=== PATIENT | female | born 1995 | race Caucasian/White ===

== ENCOUNTER → 2019-12-13 | Outpatient (REF) | payer BC | LOC: M SFHCWAGY 13:07 | PROVIDERS: ATTEND Advanced Practice Midwife | DX: Z12.4 Encounter for screening for malignant neoplasm of cervix (principal) ==

== ENCOUNTER → 2020-07-03 | Outpatient (REF) | payer BC ==
[2020-07-03 12:46] LABS: HEMOGLOBIN 13.6 g/dl (12.0-15.5); MEAN CORPUSCULAR HGB CONC 32.4 g/dl (32.0-36.5); MEAN CORPUSCULAR VOLUME 92.7 fl (80.0-96.0); PLATELET COUNT, AUTOMATED 270 10^3/uL (150-450); RED BLOOD COUNT 4.53 10^6/uL (4.00-5.40); WHITE BLOOD COUNT 9.9 10^3/uL (4.0-10.0)
[2020-07-03 14:03] LABS: HEPATITIS C VIRUS ABY INDEX 0.1 INDEX (<0.8); HIV 1&2 SCREEN CENTAUR NEGATIVE (NEGATIVE)
== END ==
LOC: M PLALAB 10:09
PROVIDERS: ATTEND Advanced Practice Midwife
DX: O09.291 Supervision of pregnancy with other poor reproductive or obstetric history, first trimester (principal)

== ENCOUNTER → 2020-08-20 | Outpatient (CLI) | payer BC ==
--- NOTE | 2020-08-20 15:58 | REP ---
INDICATION: R10.11 RUQ PAIN,19 WEEK PREG COMPARISON: None. TECHNIQUE: Real time rudolph scale ultrasound examination using curved array transducer. FINDINGS: Liver is normal in contour, size, and echogenicity without focal hepatic lesions identified. Pancreas is incompletely evaluated due to interposed bowel gas. The gallbladder is normal and without gallstones, wall thickening, or pericholecystic fluid. No biliary ductal dilatation is appreciated and the common bile duct measures 3.8 mm diameter. Right kidney is normal in reniform shape without hydronephrosis and measures 11.4 x 6.0 x 5.0 cm. No ascites in the visualized right upper quadrant. IMPRESSION: Normal limited right upper quadrant ultrasound <Electronically signed by Shawn Kaur > 08/20/20 [id number]
== END ==
LOC: M WHC 13:38
PROVIDERS: ATTEND Advanced Practice Midwife
DX: R10.11 Right upper quadrant pain (principal)

== ENCOUNTER → 2020-08-20 | Outpatient (REF) | payer BC ==
[2020-08-20 15:25] LABS: HEMOGLOBIN 13.2 g/dl (12.0-15.5); MEAN CORPUSCULAR HEMOGLOBIN 31.2 pg (27.0-33.0); MEAN CORPUSCULAR VOLUME 94.6 fl (80.0-96.0); PLATELET COUNT, AUTOMATED 243 10^3/uL (150-450); RED BLOOD COUNT 4.23 10^6/uL (4.00-5.40)
[2020-08-20 15:59] LABS: ALBUMIN 3.6 GM/DL (3.2-5.2); BILIRUBIN,DIRECT 0.1 MG/DL (0.0-0.2); BILIRUBIN,TOTAL 0.4 MG/DL (0.2-1.0); TOTAL PROTEIN 7.1 GM/DL (6.4-8.2)
== END ==
LOC: M PLALAB 13:20
PROVIDERS: ATTEND Advanced Practice Midwife
DX: R10.11 Right upper quadrant pain (principal)

== ENCOUNTER → 2020-09-04 | Outpatient (CLI) | payer BC ==
--- NOTE | 2020-09-04 16:03 | REP ---
INDICATION: ANATOMY. COMPARISON: None. TECHNIQUE: Transabdominal obstetric sonography FINDINGS: Scanning through the gravid uterus demonstrates a viable single intrauterine gestation in transverse, head to the maternal left lie. motion is observed and heart rate is recorded at 149 beats per minute. A posterior placenta is seen, grade 0, without evidence of placenta previa. Amniotic fluid is subjectively normal. Closed cervical length is measured at 3.7 cm transabdominally. No extrauterine abnormality is observed. No anomaly is seen. The following anatomic structures are identified and felt to be sonographically unremarkable: cranium, choroid plexus, cavum, cerebellum and posterior fossa, facial profile, lungs, four-chamber heart with left and right ventricular outflow tract views, diaphragm, left-sided stomach, abdominal wall cord insertion, three-vessel umbilical cord, kidneys and bladder, spine, and upper and lower extremities. nose and lips are less than optimally seen today due to position. Biometry chart: BPD 4.6 cm, 20 weeks 0 days Head circumference 17.3 cm, 19 weeks 6 days Abdominal circumference 14.6 cm, 19 weeks 6 days Femur length 3.3 cm, 20 weeks 1 day Humeral length 3.0 cm, 19 weeks 6 days HC AC ratio normal 1.19 Cephalic index normal 0.73 Estimated weight 326 g, 0 lb 11 oz, less than 3rd percentile for 21 weeks 2 days Amniotic fluid volume subjectively normal IMPRESSION: Viable single intrauterine gestation at 20 weeks 0 days by today's composite sonographic criteria. DEISY by today's sonography January 22, 2021 nose and lips less than optimally seen today due to position.. No complication identified. <Electronically signed by Mack Ricks > 09/04/20 1600
== END ==
LOC: M WHC 11:21
PROVIDERS: ATTEND Advanced Practice Midwife
DX: Z34.92 Encounter for supervision of normal pregnancy, unspecified, second trimester (principal); Z3A.20 20 weeks gestation of pregnancy

== ENCOUNTER → 2020-10-02 | Outpatient (REF) | payer BC | LOC: M PLALAB 09:30 | PROVIDERS: ATTEND Obstetrics & Gynecology | DX: Z3A.25 25 weeks gestation of pregnancy (principal) ==

== ENCOUNTER → 2020-10-09 | Outpatient (CLI) | payer BC | LOC: M WHC 12:18 | PROVIDERS: ATTEND Obstetrics & Gynecology | DX: Z3A.25 25 weeks gestation of pregnancy (principal) ==

== ENCOUNTER → 2020-10-23 | Outpatient (REF) | payer BC ==
[2020-10-23 14:40] LABS: HEMATOCRIT 37.4 % (36.0-47.0); HEMOGLOBIN 11.9 g/dl (12.0-15.5); MEAN CORPUSCULAR HEMOGLOBIN 31.3 pg (27.0-33.0); MEAN CORPUSCULAR HGB CONC 31.8 g/dl (32.0-36.5); MEAN CORPUSCULAR VOLUME 98.4 fl (80.0-96.0); PLATELET COUNT, AUTOMATED 215 10^3/uL (150-450); WHITE BLOOD COUNT 9.9 10^3/uL (4.0-10.0)
== END ==
LOC: M PLALAB 10:05
PROVIDERS: ATTEND Obstetrics & Gynecology
DX: Z3A.25 25 weeks gestation of pregnancy (principal)
CPT/HCPCS: 36415; 82950; 85027; 86850; 86900; 86901; J2790

== ENCOUNTER → 2020-12-18 | Outpatient (REF) | payer BC | LOC: M SFHCWAGY 16:53 | PROVIDERS: ATTEND Advanced Practice Midwife | DX: Z34.83 Encounter for supervision of other normal pregnancy, third trimester (principal); Z36.85 Encounter for antenatal screening for Streptococcus B ==

== ENCOUNTER → 2021-01-08 | Outpatient (CLI) | payer BC | LOC: M LABSMTC 10:36 | PROVIDERS: ATTEND Specialist | DX: Z20.828 Contact with and (suspected) exposure to other viral communicable diseases (principal); Z11.59 Encounter for screening for other viral diseases ==

== ENCOUNTER → 2021-01-13 | Outpatient (CLI) | payer BC ==
[~2021-01-13] MED LIST: PRENTAB9 PO
== END ==
LOC: M LABSMTC 09:42
PROVIDERS: ATTEND Specialist
DX: Z20.828 Contact with and (suspected) exposure to other viral communicable diseases (principal)

== ENCOUNTER → 2022-07-29 | Outpatient (REF) | payer BC ==
[2022-07-29 22:08] LABS: GC DNA AMPLIFICATION NEGATIVE (NEGATIVE)
== END ==
LOC: M PLALAB 16:19
PROVIDERS: ATTEND Advanced Practice Midwife
DX: Z34.81 Encounter for supervision of other normal pregnancy, first trimester (principal)

== ENCOUNTER → 2022-07-29 | Outpatient (CLI) | payer BC ==
[2022-07-29 18:29] LABS: HEMATOCRIT 38.4 % (36.0-47.0); HEMOGLOBIN 12.4 g/dl (12.0-15.5); MEAN CORPUSCULAR HEMOGLOBIN 30.8 pg (27.0-33.0); MEAN CORPUSCULAR HGB CONC 32.3 g/dl (32.0-36.5); MEAN CORPUSCULAR VOLUME 95.3 fl (80.0-96.0); PLATELET COUNT, AUTOMATED 269 10^3/uL (150-450); RED BLOOD COUNT 4.03 10^6/uL (4.00-5.40); WHITE BLOOD COUNT 10.4 10^3/uL (4.0-10.0)
[2022-07-29 20:54] LABS: HEPATITIS B SURFACE ANTIGEN NEGATIVE (NEGATIVE); HEPATITIS C VIRUS ABY INDEX < 0.0 INDEX (<0.8); HIV 1&2 SCREEN CENTAUR NEGATIVE (NEGATIVE)
== END ==
LOC: M PLALAB 15:24
PROVIDERS: ATTEND Advanced Practice Midwife
DX: Z34.81 Encounter for supervision of other normal pregnancy, first trimester (principal); Z3A.00 Weeks of gestation of pregnancy not specified

== ENCOUNTER → 2022-09-16 | Outpatient (CLI) | payer BC, OTHER | LOC: M WHC 09:23 | PROVIDERS: ATTEND Obstetrics & Gynecology | DX: Z34.82 Encounter for supervision of other normal pregnancy, second trimester (principal); Z3A.19 19 weeks gestation of pregnancy ==

== ENCOUNTER → 2022-11-18 | Outpatient (CLI) | payer OTHER ==
[2022-11-18 10:13] LABS: HEMATOCRIT 35.4 % (36.0-47.0); HEMOGLOBIN 11.6 g/dl (12.0-15.5); MEAN CORPUSCULAR HGB CONC 32.8 g/dl (32.0-36.5); MEAN CORPUSCULAR VOLUME 97.8 fl (80.0-96.0); PLATELET COUNT, AUTOMATED 201 10^3/uL (150-450); RED BLOOD COUNT 3.62 10^6/uL (4.00-5.40); WHITE BLOOD COUNT 9.4 10^3/uL (4.0-10.0)
[2022-11-18 12:58] LABS: GC DNA AMPLIFICATION NEGATIVE (NEGATIVE)
== END ==
LOC: M PLALAB 08:03
PROVIDERS: ATTEND Specialist
DX: Z36.9 Encounter for antenatal screening, unspecified (principal)
CPT/HCPCS: 36415; 82950; 85027; 86850; 86900; 86901; 87810; 87850; J2790

== ENCOUNTER → 2022-12-23 | Outpatient (CLI) | payer OTHER | LOC: M LAB 07:33 | PROVIDERS: ATTEND Obstetrics & Gynecology | DX: O99.810 Abnormal glucose complicating pregnancy (principal) ==

== ENCOUNTER → 2022-12-30 | Outpatient (REF) | payer MEDICARE | LOC: M PLALAB 10:35 | PROVIDERS: ATTEND Advanced Practice Midwife | DX: Z12.4 Encounter for screening for malignant neoplasm of cervix (principal) ==

== ENCOUNTER → 2023-01-13 | Outpatient (REF) | payer MEDICARE | LOC: M PLALAB 10:38 | PROVIDERS: ATTEND Obstetrics & Gynecology | DX: Z36.89 Encounter for other specified antenatal screening (principal); Z3A.36 36 weeks gestation of pregnancy ==

== ENCOUNTER 2023-02-06 03:03 | Inpatient (IN) | payer MEDICARE ==
[2023-02-06] VITALS (7 sets, daily range): BP systolic 114–160; BP diastolic 54–86
[2023-02-06] MEDS ORDERED: LACTATED RINGER'S 1000 ML IV STA (03:18)
[2023-02-06] MEDS ORDERED: TRANEXAMIC ACID INJection 1,000 MG in NS 100 ML IV PRN (03:20)
[2023-02-06] MEDS ORDERED: METHYLERGONOVINE MALEATE 0.2MG/ML 1ML VIAL IM PRN (03:20)
[2023-02-06] MEDS ORDERED: OXYTOCIN DRIP 30 UNITS in IV 1 EA IV PRN (03:20)
[2023-02-06] MEDS ORDERED: CARBOPROST TROMETHAMINE 250 MCG/ML AMP IM PRN (03:20)
[2023-02-06] MEDS ORDERED: LR 1,000 ML IV SCH (03:20)
[2023-02-06] MEDS ORDERED: LIDOCAINE 1% MDV 20ML VIAL INFIL PRN (03:20)
[2023-02-06 03:37] LABS: HEMATOCRIT 39.5 % (36.0-47.0); HEMOGLOBIN 13.1 g/dl (12.0-15.5); MEAN CORPUSCULAR HEMOGLOBIN 31.3 pg (27.0-33.0); MEAN CORPUSCULAR HGB CONC 33.2 g/dl (32.0-36.5); MEAN CORPUSCULAR VOLUME 94.5 fl (80.0-96.0); PLATELET COUNT, AUTOMATED 186 10^3/uL (150-450); RED BLOOD COUNT 4.18 10^6/uL (4.00-5.40); WHITE BLOOD COUNT 14.8 10^3/uL (4.0-10.0)
[2023-02-06] MEDS ORDERED: EPIDURAL/PCA KEYS XX PRN (03:40)
[2023-02-06] MEDS ORDERED: LR 500 ML IV PRN (03:40)
[2023-02-06] MEDS ORDERED: NALOXONE INJ 0.4MG/1ML VIAL IV PRN (03:40)
[2023-02-06] MEDS ORDERED: ePHEDrine SULFATE 25 MG/5 ML(5MG/ML) SYRINGE IVP PRN (03:40)
[2023-02-06] MEDS ORDERED: FENTANYL/ROPIVACAINE/NACL BAG 100 ML EPIDURAL SCH (03:40)
[2023-02-06] MEDS ORDERED: diphenhydrAMINE 50MG/ML VIAL IV PRN (03:40)
[2023-02-06] MEDS ORDERED: ONDANSETRON 4MG 2ML VIAL IV PRN (03:40)
[2023-02-06] MEDS ORDERED: MORPHINE 10 MG/ML 1ML VIAL IV ONE (04:25)
[2023-02-06] MEDS ORDERED: ONDANSETRON 4MG 2ML VIAL IV ONE (04:30)
[2023-02-06 04:40] LABS: CORD GAS ABE A -8.7; CORD GAS HCO3 A 19.2 MMOL/L; CORD GAS O2 SAT A 37.9 %; CORD GAS PH A 7.211 UNITS; CORD GAS PO2 A 20.2 mmHg; CORD GAS SBC A 16.4 MMOL/L; CORD GAS TCO2 A 20.7 MMOL/L
[2023-02-06 04:42] LABS: CORD GAS ABE V -6.7; CORD GAS HCO3 V 19.2 MMOL/L; CORD GAS O2 SAT V 71.6 %; CORD GAS PCO2 V 39.7 mmHg; CORD GAS PH V 7.302 UNITS; CORD GAS PO2 V 31.3 mmHg; CORD GAS SBC V 18.5 MMOL/L; CORD GAS TCO2 V 20.4 MMOL/L
[2023-02-06] MEDS ORDERED: METHYLERGONOVINE MALEATE 0.2 MG TAB PO PRN (05:20)
[2023-02-06] MEDS ORDERED: MOM 30ML SUSPENSION UDC PO PRN (05:20)
[2023-02-06] MEDS ORDERED: PERCOCET 5MG/325MG TAB PO PRN (05:20)
[2023-02-06] MEDS ORDERED: ANUSOL HC CREAM 30GM TOP PRN (05:20)
[2023-02-06] MEDS ORDERED: RHOGAM 300MCG (1500IU) INJ IM SCH (05:20)
[2023-02-06] MEDS ORDERED: DIBUCAINE 1% OINTMENT 30GM TOP PRN (05:20)
[2023-02-06] MEDS: ACETAMINOPHEN 500 MG TAB PO PRN ×3 (06:38→21:19)
[2023-02-06] MEDS: IBUPROFEN 600MG TAB PO PRN ×2 (06:38→13:21)
[2023-02-06] MEDS: PRENATAL VITAMINS CHEWABLE TABLET PO SCH (08:37)
[2023-02-06] MEDS: DOCUSATE SODIUM 100MG CAPSULE PO SCH ×2 (08:37→21:19)
[2023-02-07 05:50] VITALS: BP 108/66
[2023-02-07] MEDS: IBUPROFEN 600MG TAB PO PRN (06:02)
[2023-02-07] MEDS: PRENATAL VITAMINS CHEWABLE TABLET PO SCH (09:20)
[2023-02-07] MEDS: DOCUSATE SODIUM 100MG CAPSULE PO SCH (09:20)
[2023-02-08] MEDS ORDERED: MEASLES,MUMPS,RUBELLA VACCINE INJ (MMR-II) SC.IMMUN ONE (09:00)
== END 2023-02-07 16:30 | disposition home or self-care (01) | DRG 807 ==
LOC: M LDO 03:03 → M LDI 03:21 → M OBS 06:51
PROVIDERS: ADMIT Advanced Practice Midwife; ATTEND Advanced Practice Midwife
PROC: 10E0XZZ Delivery of Products of Conception, External Approach (ICD-10-PCS; principal; 2023-02-06)
PROC: 0KQM0ZZ Repair Perineum Muscle, Open Approach (ICD-10-PCS; 2023-02-06)
DX: O77.0 Labor and delivery complicated by meconium in amniotic fluid (principal); Z37.0 Single live birth; Z3A.39 39 weeks gestation of pregnancy; O70.1 Second degree perineal laceration during delivery